=== PATIENT | female | born 1985 | race Caucasian/White ===

== ENCOUNTER 2022-02-20 13:20 | Outpatient (CLI) | payer BC, SELFPAY ==
[2022-02-20 23:24] LABS: Chlamydia DNA Amplified* NOT DETECTED (No Detected); GC DNA Amplified* NOT DETECTED (No Detected)
== END 2022-02-20 13:21 | disposition home or self-care (01) ==
PROVIDERS: PCP Physician Assistant Medical; Visit Provider Physician Assistant Medical
DX: Z00.00 Encounter for general adult medical examination without abnormal findings (principal); N94.10 Unspecified dyspareunia; K21.9 Gastro-esophageal reflux disease without esophagitis
CPT/HCPCS: 87491; 87591; 87624; 88175

== ENCOUNTER 2023-02-17 07:59 | Outpatient (CLI) | payer BC, SELFPAY | END 2023-02-17 08:00 | disposition home or self-care (01) | LOC: NFLDREF 02-19 12:58 | PROVIDERS: PCP Physician Assistant Medical; Referring Provider Physician Assistant Medical; Visit Provider Physician Assistant Medical | DX: Z00.00 Encounter for general adult medical examination without abnormal findings (principal); R74.8 Abnormal levels of other serum enzymes; Z13.6 Encounter for screening for cardiovascular disorders | CPT/HCPCS: 80053; 80061; 84443 ==

== ENCOUNTER 2023-03-19 13:07 | Outpatient (CLI) | payer BC, SELFPAY | END 2023-03-19 13:08 | disposition home or self-care (01) | PROVIDERS: PCP Physician Assistant Medical; Visit Provider Physician Assistant Medical | DX: Z01.818 Encounter for other preprocedural examination (principal); R74.8 Abnormal levels of other serum enzymes | CPT/HCPCS: 80076; 86703; 86803 ==

== ENCOUNTER 2023-03-28 09:23 | Day surgery (SDC) | payer BC, SELFPAY ==
[2023-03-28] VITALS (11 sets, daily range): BP systolic 100–121; BP diastolic 67–83; PULSE 66–93; RESP 12–20; TEMP 36.6–36.9; O2SAT 94–98; BMI 199.0
[2023-03-28] MEDS: SODIUM CHLORIDE 0.9 % (FLUSH) 10 ML SYRINGE IVF (09:45)
[2023-03-28] MEDS: LACTATED RINGERS 1000 ML 1,000 ML 100 ML IV (09:45)
[2023-03-28] MEDS: OXYMETAZOLINE (AFRIN) SOAK 1 EACH TOPICAL (10:00)
--- NOTE | 2023-03-28 10:58 | W.ANESCHARGE ---
Anesthesia Charges Start Date/Time Anesthesia Start Date: 03/28/23 Anesthesia Start Time: 10:52 Stop Date/Time Anesthesia Stop Date: 03/28/23 Anesthesia Stop Time: 11:24
[2023-03-28] MEDS: COCAINE HCL 4 % 4 ML SOLUTION NOSTRIL-B (11:05)
--- NOTE | 2023-03-28 11:06 | SUR.OPER ---
PATIENT QUESTIONS ANSWERED SATISFACTORILY PREOPERATIVELY. PATIENT BROUGHT TO OR #2 PER CART. Patient positioned supine on OR #2 bed. Perioperative team wrapped arms bilaterally at patient side with drawsheet. ? Final approval of positioning by surgeon.
[2023-03-28] MEDS: BUPIVACAINE 0.5%/EPINEPHRINE 0.9 MG (30.9 ML) INJECTION (11:07)
[2023-03-28] MEDS: AYR SALINE NASAL GEL 1 APPLIC NOSTRIL-B (11:08)
--- NOTE | 2023-03-28 11:22 | W.ANESCHARGE ---
Anesthesia Charges Start Date/Time Anesthesia Start Date: 03/28/23 Anesthesia Start Time: 10:52 Stop Date/Time Anesthesia Stop Date: 03/28/23 Anesthesia Stop Time: 11:24
[2023-03-28 11:45] LABS: Ur HCG Qualitative* Negative (Negative)
[2023-03-28] MEDS: ACETAMINOPHEN 325 MG TABLET PO (12:00)
[2023-03-28] MEDS: IBUPROFEN 200 MG TABLET PO (12:00)
--- NOTE | 2023-03-28 12:13 | P.ENTPROC_ITS ---
Procedure Note Date of procedure: 03/28/23 Procedure: Preoperative diagnosis nasal obstruction, inferior turbinate hypertrophy Postoperative diagnosis same Procedure submucous partial resection inferior turbinates bilateral Under general endotracheal anesthesia patient was prepped and draped in usual fashion nose injected and decongested. Stab incision was made the anterior of the right inferior turbinate a tunnel created with a [place] dissector. The vidhya bone was outfractured and a conservative anterior submucous resection performed. The Coblation Wand was used to cauterize intramurally along the inferior 10%. This was repeated on the left side in identical fashion. There was minimal bleeding. Com both placed in each nostril the end of the procedure. The patient opted was taken recovery in satisfactory condition blood loss less than 10 mL. Surgeon: Lokesh Arriaga MD
== END 2023-03-28 13:12 | disposition home or self-care (01) ==
LOC: OR 09:25
PROVIDERS: PCP Physician Assistant Medical; Visit Provider Otolaryngology
PROC: (CPT 30140; principal; 2023-03-28 10:45)
DX: J34.3 Hypertrophy of nasal turbinates (principal); J34.89 Other specified disorders of nose and nasal sinuses
CPT/HCPCS: 30140; 160; 81025; A9270; J0330; J1100; J1200; J2250; J2405; J2704; J3010; J7120

== ENCOUNTER 2023-05-26 12:50 | Outpatient (CLI) | payer BC, SELFPAY ==
--- NOTE | 2023-05-26 13:00 | CRLHL7_ITS ---
For Patients: As a result of the Century Cures Act, medical imaging exams and procedure reports are released immediately into your electronic medical record. You may view this report before your referring provider. If you have questions, please contact your health care provider. BILATERAL SCREENING MAMMOGRAM WITH COMPUTER-AIDED DETECTION AND TOMOSYNTHESIS TECHNIQUE: CC and MLO views were obtained. These mammographic images have been obtained using full-field digital technique. These mammographic images were interpreted with the benefit of computer-aided detection. Breast Tomosynthesis was used in this interpretation. COMPARISON FILM: Baseline, no priors available. FINDINGS: The breasts are heterogeneously dense, which may obscure small masses IMPRESSION: There is no radiographic evidence for malignancy. ASSESSMENT: BI-RADS Category 1: Negative RECOMMENDATION: Routine screening mammogram in 1 year. A lay language report of this examination will be provided to the patient. Michael Adrian M.D. Diagnostic Radiologist [email or web address] [place]/Dictated by: Michael Adrian MD @ 05/27/2023 9:01:00 AM (Electronically Signed)
== END 2023-05-26 12:51 | disposition home or self-care (01) ==
PROVIDERS: PCP Physician Assistant Medical; Visit Provider Physician Assistant Medical
DX: Z12.31 Encounter for screening mammogram for malignant neoplasm of breast (principal); R92.2 Inconclusive mammogram
CPT/HCPCS: 77063; 77067

== ENCOUNTER 2023-12-10 08:46 | Outpatient (CLI) | payer BC, SELFPAY ==
--- OUTSIDE RECORDS SUMMARY | 2023-12-10 08:51 | XMS_ITS | Referral Summary ---
Author Organization [place] Address [address] [place] [address] Care Team Providers Care Animal Husbandry Worker Name Role Phone Dexter Quinteros MD Primary Care Provider +1 [phone] Allergies No known active allergies Medications Medication Sig Dispensed Refills Start Date End Date Status Vit-Fe Sulfate-FA ( VITAMIN OR) Take 2 tablets by mouth daily Active oxyCODONE (ROXICODONE) 5 MG immediate release tabletIndications:Ce sarean delivery delivered Take 2 tablets (10 mg) by mouth every 3 hours as needed for moderate to severe pain 30 tablet 0 11/10/2013 Active ibuprofen (ADVIL,MOTRIN) 400-800 mg tabletIndications:Ce sarean delivery delivered Take 1-2 tablets (400-800 mg) by mouth every 6 hours as needed for other (cramping) 90 tablet 0 11/10/2013 Active senna-docusate (SENOKOT-S;PERICOLAC E) 8.6-50 MG per tabletIndications:Ce sarean delivery delivered Take 1-2 tablets by mouth 2 times daily 60 tablet 0 11/10/2013 Active Active Problems Problem Noted Date Diagnosed Date delivery delivered 11/08/2013 Social History Tobacco Use Types Packs/Day Years Used Date Smoking Tobacco: Every Day Cigarettes Smokeless Tobacco: Never Tobacco Cessation:Ready to Q uit: No Comments:not while Alcohol Use Standard Drinks/Week Comments Yes 0 (1 standard drink = 0.6 oz pur e alcohol) occas when not Adolescent Education Answer Date Record ed Getting School Help Needed Not on file 10/07 /2023 Sex and Gender Information Value Date Recorded Sex Assigned at Not on file Gender Identity Not on file Sexual Orientation Not on file Last Filed Vital Signs Vital Sign Reading Time Taken Comments Blood Pressure 105/73 02/01/2023 12:39 PM CDT Pulse 73 02/01/2023 12:44 PM CDT Temperature 37.3 ??C (99.1 ??F) 02/01/2023 9:52 AM CD T Respiratory Rate 16 02/01/2023 11:15 AM CDT Oxygen Saturation 99% 02/01/2023 12:44 PM CDT Inhaled Oxygen Concentration - - Weight 81 kg (178 lb 9.6 oz) 11/08/2013 7:00 AM CDT Height 157.5 cm (5' 2) 11/08/2013 7:00 AM CDT Body Mass Index 32.67 11/08/2013 7:00 AM CDT Plan of Treatment Not on file Procedures Procedure Name Priority Date/Time Associated Diagnosis Comments BASIC METABOLIC PANEL STAT 02/01/2023 9:58 AM CDT HIV 1 AND 2 ANTIBODY (QUEST) Routine 04/15/2013 from Last 3 Months or Most Recently Relevant to Health Maintenance Results * Basic metabolic panel (BMP) (02/01/2023 9:58 AM CDT) Sodium 138 136 - 145 mmol/L 02/01/2023 10:28 AM CDT LABORATORY Potassium 4.1 3.4 - 5.3 mmol/L 02/01/2023 10:28 AM CDT LABORATORY Chloride 103 98 - 107 mmol/L 02/01/2023 10:28 AM CDT LABORATORY Carbon Dioxide (CO2) 23 22 - 29 mmol/L 02/01/2023 10:28 AM CDT LABORATORY Anion Gap 12 7 - 15 mmol/L 02/01/2023 10:28 AM CDT [facility] LABORATORY Urea Nitrogen 17.6 6.0 - 20.0 mg/dL 02/01/2023 10:28 AM CDT LABORATORY Creatinine 0.74 0.51 - 0.95 mg/dL 02/01/2023 10:28 AM CDT LABORATORY Calcium 9.2 8.6 - 10.0 mg/dL 02/01/2023 10:28 AM CDT [facility] LAB[facility] Glucose 96 70 - 99 mg/dL 02/01/2023 10:28 AM CDT [facility] LAB[facility]ATORY GFR Estimate >90 >60 mL/min/1.7 3m2 02/01/2023 10:28 AM CDT [facility] LABORATORY Blood BLOOD SPECIMEN / Unknown Venipuncture / Unknown 02/01/2023 9:58 AM CDT 02/01/2023 10:08 AM CDT Diana Solitario PA-C LAB - BLOOD ORDERABL ES RH LABORATORY [facility] Acute Care Lab [address] [facility] Lab (1st floor, no room number) [place] [address], [facility] [phone] * HIV 1 and 2 Antibody (QUEST) (04/15/2013) HIV 1&2 Antibody non reactive Blood specimen (specimen) Patient Reported LAB - BLOOD ORDERABL ES from Last 3 Months or Most Recently Relevant to Health Maintenance Care Teams Animal Husbandry Worker Relationship Specialty Start Date End Date Dexter Quinteros MD [facility] [address] [place] [address] PCP - General Family Practice 07/13/11
--- OUTSIDE RECORDS SUMMARY | 2023-12-10 08:51 | XMS_ITS | Clinical Summary ---
Author Organization [employer] [facility] Address [place], [place] [address] Care Team Providers Care Civil Design Specialist Name Role Phone Jules Carranza MD Primary Care Provider +1 [phone] Allergies No known active allergies Medications Hospital, Clinic, or Other Facility Administered Medication Ordered Dose Route Frequency Start Date End Date Status medroxyPROGESTERone acetate (contraceptive) 150 mg injection (DEPO-PROVERA)Indicat ions:Menorrhagia with irregular cycle 150 mg IM Q 3 MONTHS (12 WEEKS) 11/10/2018 Active Immunizations Name Administration Dates Next Due MMR 03/12/1995 Tdap 07/21/2010,10/21/2008 Family History Medical History Relation Name Comments Lung cancer Father Hyperlipidemia Mother Hypertension Mother Bone cancer Paternal Grandfather Kidney cancer Paternal Grandmother No Known Problems Sister Relation Name Status Comments Father Mother Paternal Grandfather Paternal Grandmother Sister Social History Tobacco Use Types Packs/Day Years Used Date Smoking Tobacco: Every Day Cigarettes Smokeless Tobacco: Never Tobacco Cessation:Ready to Q uit: Yes; Counseling Given: Yes Comments:plans to quit in 2019 Alcohol Use Standard Drinks/Week Comments No 0 (1 standard drink = 0.6 oz pur e alcohol) Sex and Gender Information Value Date Recorded Sex Assigned at Not on file Gender Identity Not on file Sexual Orientation Not on file Obstetrics History Para Term AB IAB SAB Ectopic Multiple Livin g Live Births 1 1 1 1 Date Outcome GA Total Labor Labor/2nd/3rd Weight Sex Delivery Anes PTL Maddie A1 A5 Name Cl in 07/20 Term 39w 0d 2.79 kg (6 lb 2.4 oz) M Vag 9 9 FIEDL ER,BA BY BOY (CHRI JULIAN ) Delivery Location[facility] Comments:BLN: Brant Johnson eds: Zully (undoc'd) Last Filed Vital Signs Vital Sign Reading Time Taken Comments Blood Pressure 96/60 01/28/2019 1:04 PM CDT Pulse 76 11/10/2018 12:30 PM CDT Temperature 36.6 ??C (97.9 ??F) 11/04/2014 1:25 PM CD T Respiratory Rate 16 11/04/2014 1:25 PM CDT Oxygen Saturation 100% 11/04/2014 1:25 PM CDT Inhaled Oxygen Concentration - - Weight 65.8 kg (145 lb) 01/28/2019 1:04 PM CDT Height 162.6 cm (5' 4) 11/10/2018 12:30 PM CDT Body Mass Index 24.89 11/10/2018 12:30 PM CDT Plan of Treatment Health Maintenance Due Date Last Done Comments HIV for age 15-65 1998 Hepatitis C screening for age 18-79 2001 BMI (ht and wt on same day) for age 18+ 11/11/2019 11/10/2018, 03/26/2017 Depression screening for age 12+ 11/11/2019 11/10/2018, 11/10/2018, 03/26/2017 Tetanus booster 07/21/2020 07/21/2010, 10/21/2008 COVID-19 vaccine series (2022- season) 2023 Influenza for age 9-49 03/14/2024 Pap test for age 21-65 02/20/2025 , 02/20/2022, 06/02/2019, Additional history exists Tdap Completed 07/21/2010, 10/21/2008 Pneumococcal series for age 6-64 Aged Out No longer eligible based on patient's age to complete this topic Procedures Procedure Name Priority Date/Time Associated Diagnosis Comments HPV THIN PREP Routine 02/20/2022 1:30 PM CDT from Last 3 Months or Most Recently Relevant to Health Maintenance Results * HPV HIGH RISK (02/20/2022 1:30 PM CDT) TYPE 16 Negative Negative 02/26/2022 10:58 AM CDT [facility] TYPE 18 Negative Negative 02/26/2022 10:58 AM CDT [facility] LAB[facility] OTHER HIGH RISK TYPES Negative Negative 02/26/2022 10:58 AM CDT [facility] TRAL LABORATORY Other (Cervical/Vagina l) 02/20/2022 1:30 PM CDT 02/22/2022 10:29 AM CDT Narrative [facility] - 02/26/2022 10:58 AM CDT HPV types 16, 18, 31, 33, 35, 39, 45, 51, 52, 56, 58, 59, 66 and 68 DNA were undetectable or below the pre-set threshold. Methodology: Mohamud Latonia 4800 HPV Test Ayah Reyes PA-C MICROBIOLOGY [facility] LABORATORY [address] [place] [address], from Last 3 Months or Most Recently Relevant to Health Maintenance Advance Directives * Full Code (Latest Code Status on File) Date Activated Date Inactivated Comments 11/04/2014 8:19 AM 11/04/2014 3:32 PM * Full Code Date Activated Date Inactivated Comments 07/20/2010 7:40 PM 07/22/2010 3:49 PM * Full Code Date Activated Date Inactivated Comments 07/20/2010 5:08 AM 07/20/2010 7:40 PM Care Teams Civil Design Specialist Relationship Specialty Start Date End Date [place], [place] [address] [place] [address] PCP - General Family Practice 03/26/17
--- OUTSIDE RECORDS SUMMARY | 2023-12-10 08:51 | XMS_ITS | Clinical Summary ---
Author Organization [place] Address [address] [place] [address] Care Team Providers Care Mine Engineering Superintendent Name Role Phone Dexter Quinteros MD Primary Care Provider +1 [phone] Allergies No known active allergies Medications Medication [...] 11/08/2013 7:00 AM CDT Plan of Treatment Health Maintenance Due Date Last Done Comments ADVANCE CARE PLANNING 1983 ANNUAL REVIEW OF HM ORDERS 1983 MAMMO SCREENING 1983 YEARLY PREVENTIVE VISIT 1983 Pneumococcal Vaccine: Pediatrics (0 to 5 Years) and At-Risk Patients (6 to 64 Years) (1 of 2 - PCV) 1989 HEPATITIS C SCREENING 2001 HEPATITIS B IMMUNIZATION (1 of 3 - 19+ 3-dose series) 2002 DTAP/TDAP/TD IMMUNIZATION (3 - Td or Tdap) 07/21/2020 07/21/2010, 10/21/2008 LIPID 2023 COVID-19 Vaccine (1 - 2022-2 4 season) 2023 PHQ-2 (once per calendar year) 2023 INFLUENZA VACCINE (Season Ended) 2024 PAP 02/20/2025 02/20/2022, 02/20/2022 GLUCOSE 02/01/2026 02/01/2023, 07/13/2011, 11/14/2004 HIV SCREENING Completed 04/15/2013 HPV IMMUNIZATION Aged Out No longer e ligible based on patient's age to complete this topic IPV IMMUNIZATION Aged Out No longer e ligible based on patient's age to complete this topic MENINGITIS IMMUNIZATION Aged Out No l onger eligible based on patient's age to complete this topic RSV MONOCLONAL ANTIBODY Aged Out No l onger eligible based on patient's age to complete [...] - 15 mmol/L 02/01/2023 10:28 AM CDT LABORATORY Urea Nitrogen 17.6 6.0 - 20.0 mg/dL 02/01/2023 10:28 AM CDT LABORATORY Creatinine 0.74 0.51 - 0.95 mg/dL 02/01/2023 10:28 AM CDT LABORATORY Calcium 9.2 8.6 - 10.0 mg/dL 02/01/2023 10:28 AM CDT LABORATORY Glucose 96 70 - 99 mg/dL 02/01/2023 10:28 AM CDT LABORATORY GFR Estimate >90 >60 mL/min/1.7 3m2 02/01/2023 10:28 AM CDT LABORATORY Blood BLOOD SPECIMEN / Unknown Venipuncture / Unknown 02/01/2023 9:58 AM CDT 02/01/2023 10:08 AM CDT Diana Solitario PA-C LAB - BLOOD ORDERABL ES LABORATORY [facility] Acute Care Lab [address] [facility] Lab (1st floor, no room number) [place] [address], [facility] [phone] * HIV 1 and 2 Antibody (QUEST) (04/15/2013) HIV 1&2 Antibody non reactive Blood specimen (specimen) Patient Reported LAB - BLOOD ORDERABL ES from Last 3 Months or Most Recently Relevant to Health Maintenance Care Teams Mine Engineering Superintendent Relationship Specialty Start Date End Date Dexter Quinteros MD [facility] [address] [place] [address] PCP - General Family Practice 07/13/11
[2023-12-10 15:34] LABS: Chlamydia DNA Amplified* NOT DETECTED (No Detected); GC DNA Amplified* NOT DETECTED (No Detected)
== END 2023-12-10 08:47 | disposition home or self-care (01) ==
PROVIDERS: PCP Physician Assistant Medical; Visit Provider Physician Assistant Medical
DX: Z00.00 Encounter for general adult medical examination without abnormal findings (principal); R74.8 Abnormal levels of other serum enzymes; N92.6 Irregular menstruation, unspecified; Z11.3 Encounter for screening for infections with a predominantly sexual mode of transmission; Z11.59 Encounter for screening for other viral diseases; Z13.6 Encounter for screening for cardiovascular disorders; Z13.0 Encounter for screening for diseases of the blood and blood-forming organs and certain disorders involving the immune mechanism; Z13.1 Encounter for screening for diabetes mellitus
CPT/HCPCS: 80053; 80061; 86592; 86703; 86803; 87491; 87591

== ENCOUNTER 2024-01-06 13:43 | Outpatient (CLI) | payer BC, SELFPAY ==
--- OUTSIDE RECORDS SUMMARY | 2024-01-06 13:47 | XMS_ITS | Clinical Summary ---
Author Organization [facility] Address [address] [place] [address] Care Team Providers Care Four H Club Agent Name Role Phone Dexter Quinteros MD Primary Care Provider +1 -[phone] Allergies No known active allergies Medications Medication [...] PA-C LAB - BLOOD ORDERABL ES LABORATORY [facility] Acute Care Lab [address] [facility] Lab (1st floor, no room number) [place] [address], [facility] [phone] * HIV 1 and 2 Antibody (QUEST) (04/15/2013) HIV 1&2 Antibody non reactive Blood specimen (specimen) Patient Reported LAB - BLOOD ORDERABL ES from Last 3 Months or Most Recently Relevant to Health Maintenance Care Teams Four H Club Agent Relationship Specialty Start Date End Date Dexter Quinteros MD [facility] [address] [place] [address] PCP - General Family Practice 07/13/11
--- OUTSIDE RECORDS SUMMARY | 2024-01-06 13:48 | XMS_ITS | Referral Summary ---
Author Organization [facility] Address [address] [place] [address] Care Team Providers Care Courtroom Clerk Name Role Phone Dexter Quinteros MD Primary Care Provider +1 -[phone] Allergies No known active allergies Medications Medication [...] LAB - BLOOD ORDERABL ES RH LABORATORY [facility] Acute Care Lab [address] [facility] Lab (1st floor, no room number) [place] [address], [facility] [phone] * HIV 1 and 2 Antibody (QUEST) (04/15/2013) HIV 1&2 Antibody non reactive Blood specimen (specimen) Patient Reported LAB - BLOOD ORDERABL ES from Last 3 Months or Most Recently Relevant to Health Maintenance Care Teams Courtroom Clerk Relationship Specialty Start Date End Date Dexter Quinteros MD [facility] [address] [place] [address] PCP - General Family Practice 07/13/11
--- OUTSIDE RECORDS SUMMARY | 2024-01-06 13:48 | XMS_ITS | Clinical Summary ---
Author Organization [employer] [facility] Address [place], [place] [address] Care Team Providers Care Form Builder Name Role Phone Jules Carranza MD Primary Care Provider +1 -[phone] Allergies No known active allergies Medications Hospital, [...] Outcome GA Total Labor Labor/2nd/3rd Weight Sex Type Anes PTL Maddie A1 A5 Name Clin 1 Term 39w 0d 2.79 kg (6 lb 2.4 oz) M Vag 9 9 FIEDL ER,BA BY BOY (CHRI JULIAN ) Delivery Location:[facility] Comments:BLN: Brant Johnson eds: Zully (undoc'd) [...] 16 Negative Negative 02/26/2022 10:58 AM CDT [facility]AT[facility] TRAL LABORATORY TYPE 18 Negative Negative 02/26/2022 10:58 AM CDT [facility] TRAL LABORATORY OTHER HIGH RISK TYPES Negative Negative 02/26/2022 10:58 AM CDT [facility] TRAL LABORATORY Other (Cervical/Vagina l) 02/20/2022 1:30 PM CDT 02/22/2022 10:29 AM CDT Narrative [facility] - 02/26/2022 10:58 AM CDT HPV types 16, 18, 31, 33, 35, 39, 45, 51, 52, 56, 58, 59, 66 and 68 DNA were undetectable or below the pre-set threshold. Methodology: Mohamud Latonia 4800 HPV Test Ayah Reyes PA-C MICROBIOLOGY [facility] LABORATORY [address] [place] [address], from Last 3 Months or Most Recently Relevant to Health Maintenance Advance Directives * Full Code (Latest Code Status on File) Date Activated Date Inactivated Comments 11/04/2014 8:19 AM 11/04/2014 3:32 PM * Full Code Date Activated Date Inactivated Comments 07/20/2010 7:40 PM 07/22/2010 3:49 PM * Full Code Date Activated Date Inactivated Comments 07/20/2010 5:08 AM 07/20/2010 7:40 PM Care Teams Form Builder Relationship Specialty Start Date End Date [place], [place] [address] [place] [address] PCP - General Family Practice 03/26/17
--- NOTE | 2024-01-06 14:00 | CRLHL7_ITS ---
For Patients: As a result of the Century Cures Act, medical imaging exams and procedure reports are released immediately into your electronic medical record. You may view this report before your referring provider. If you have questions, please contact your health care provider. INDICATION: Irregular menses. TECHNIQUE: Transabdominal and transvaginal pelvic ultrasound. Grayscale and color Doppler images. FINDINGS: Uterus is anteverted and measures 7.1 x 5.5 x 2.8 cm. Endometrial stripe thickness is 5 mm. Uterus may have a septate configuration. There is a small amount of nonspecific fluid in the right uterine horn. Both ovaries appear normal and have normal color flow. Subtle corpus luteum in the right ovary. No adnexal mass or free fluid. IMPRESSION: Possible septate uterus. Dictated by Stevo Duke MD @ 01/07/2024 10:45:13 AM (Electronically Signed)
== END 2024-01-06 13:44 | disposition home or self-care (01) ==
LOC: US 13:44
PROVIDERS: PCP Physician Assistant Medical; Visit Provider Physician Assistant Medical
DX: N92.6 Irregular menstruation, unspecified (principal)
CPT/HCPCS: 76830; 76856

== ENCOUNTER 2024-06-03 06:01 | Day surgery (SDC) | payer BC, SELFPAY ==
--- OUTSIDE RECORDS SUMMARY | 2024-06-03 06:04 | XMS_ITS | Clinical Summary ---
Author Organization [place] Address [address] [place] [address] Care Team Providers Care Offset Second Press Operator Name Role Phone Dexter Quinteros MD Primary Care Provider +1 -[phone] Allergies No known active allergies Medications Vit-Fe Sulfate-FA ( VITAMIN OR) Take 2 tablets by mouth daily Active oxyCODONE (ROXICODONE) 5 MG immediate release tabletIndicatio ns: delivery delivered Take 2 tablets (10 mg) by mouth every 3 hours as needed for moderate to severe pain 30 tablet 0 11/10/2013 Active ibuprofen (ADVIL,MOTRIN) 400-800 mg tabletIndicatio ns: delivery delivered Take 1-2 tablets (400-800 mg) by mouth every 6 hours as needed for other (cramping) 90 tablet 0 11/10/2013 Active senna-docusate (SENOKOT-S;NELSON COLACE) 8.6-50 MG per tabletIndicatio ns: delivery delivered Take 1-2 tablets by mouth [...] Getting School Help Needed Not on file 04/19 Comments No Sex and Gender Information Value Date Recorded Sex Assigned at Not on file 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 Gender Identity Not on file Sexual Orientation Not on file Last Filed Vital Signs Vital Sign Reading Time Taken Comments Blood Pressure 105/73 02/01/2023 12:39 PM CDT Pulse 73 02/01/2023 12:44 PM CDT Temperature 37.3 C (99.1 F) 02/01/2023 9:52 AM CDT Respiratory Rate 16 02/01/2023 11:15 AM CDT [...] or Tdap) 07/21/2020 07/21/2010, 10/21/2008 LIPID 2023 PHQ-2 (once per calendar year) 2023 COVID-19 Vaccine (1 - 2023-2 5 season) 2024 INFLUENZA VACCINE (#1) 2024 PAP 02/20/2025 02/20/2022, 02/20/2022 GLUCOSE 02/01/2026 02/01/2023, 07/13/2011, 11/14/2004 RSV VACCINE (1 - 1-dose 75+ series) 2058 HIV SCREENING Completed 04/15/2013 HPV IMMUNIZATION Aged [...] 9:58 AM CDT 02/01/2023 10:08 AM CDT us Diana Solitario PA-C LAB - BLOOD ORDERABLES Final Re sult RH LABORATORY [facility] Acute Care Lab [address] Lab (1st floor, no room number) [place] [address], [facility] [phone] * HIV 1 and 2 Antibody (QUEST) (04/15/2013) HIV 1&2 Antibody non reactive Blood specimen (specimen) us Patient Reported LAB - BLOOD ORDERABLES Final Re sult from Last 3 Months or Most Recently Relevant to Health Maintenance Insurance [facility] Care Teams Offset Second Press Operator Relationship Specialty Start Date End Date Dexter Quinteros MD [facility] [address] [place] [address] PCP - General Family Practice 07/13/11
--- OUTSIDE RECORDS SUMMARY | 2024-06-03 06:04 | XMS_ITS | Clinical Summary ---
Author Organization [employer] [facility] Address [place], [place] [address] Care Team Providers Care Candy Rolling Machine Operator Name Role Phone Jules Carranza MD Primary Care Provider [phone] [phone] Allergies No known active allergies Medications Hospital, [...] ER,BA BY BOY (CHRI JULIAN ) Delivery Location[facility] Comments:BLN: Brant Johnson eds: Zully (undoc'd) Last Filed Vital Signs Vital Sign Reading Time Taken Comments Blood Pressure 96/60 01/28/2019 1:04 PM CDT Pulse 76 11/10/2018 12:30 PM CDT Temperature 36.6 C (97.9 F) 11/04/2014 1:25 PM CDT Respiratory Rate 16 11/04/2014 1:25 PM CDT [...] booster 07/21/2020 07/21/2010, 10/21/2008 COVID-19 vaccine series ( season) 2024 Influenza for age 9-49 03/14/2024 Pap test for age 21-65 02/20/2025 , 02/20/2022, 06/02/2019, Additional history exists Tdap Completed 07/21/2010, 10/21/2008 Pneumococcal series for age 6-64 Aged Out No longer eligible based on patient's age to complete this topic Procedures Procedure Name Priority Date/Time Associated Diagnosis Comments HPV HIGH RISK Routine 02/20/2022 1:30 PM CDT from Last 3 Months or Most Recently Relevant to Health Maintenance Results * HPV HIGH RISK (02/20/2022 1:30 PM CDT) TYPE 16 Negative Negative 02/26/2022 10:58 AM CDT [facility]AT[facility] TRAL LABORATORY TYPE 18 Negative Negative 02/26/2022 10:58 AM CDT [facility] TRA LABORATORY OTHER HIGH RISK TYPES Negative Negative 02/26/2022 10:58 AM CDT [facility] TRAL LABORATORY Other (Cervical/Vagina l) 02/20/2022 1:30 PM CDT 02/22/2022 10:29 AM CDT Narrative [facility] - 02/26/2022 10:58 AM CDT HPV types 16, 18, 31, 33, 35, 39, 45, 51, 52, 56, 58, 59, 66 and 68 DNA were undetectable or below the pre-set threshold. Methodology: Mohamud Latonia 4800 HPV Test Ayah Reyes PA-C MICROBIOLOGY [facility] LABORATORY [address] [place] [address], from Last 3 Months or Most Recently Relevant to Health Maintenance Advance Directives * Full Code (Latest Code Status on File) Date Activated Date Inactivated Comments 11/04/2014 8:19 AM 11/04/2014 3:32 PM * Full Code Date Activated Date Inactivated Comments 07/20/2010 7:40 PM 07/22/2010 3:49 PM * Full Code Date Activated Date Inactivated Comments 07/20/2010 5:08 AM 07/20/2010 7:40 PM Care Teams Candy Rolling Machine Operator Relationship Specialty [place] [address] [place] [address] PCP - General Family Practice 03/26/17
--- OUTSIDE RECORDS SUMMARY | 2024-06-03 06:04 | XMS_ITS | Referral Summary ---
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 Gender Identity Not on file Sexual Orientation [...] - 107 mmol/L 02/01/2023 10:28 AM CDT [facility] Carbon Dioxide (CO2) 23 22 - 29 mmol/L 02/01/2023 10:28 AM CDT [facility] Anion Gap 12 7 - 15 mmol/L 02/01/2023 10:28 AM CDT [facility] Urea Nitrogen 17.6 6.0 - 20.0 mg/dL 02/01/2023 10:28 AM CDT [facility] Creatinine 0.74 0.51 - 0.95 mg/dL [...] LAB - BLOOD ORDERABLES Final Re sult LABORATORY [facility] [address] [facility] (1st floor, no room number) [place] [address], [facility] [phone] * HIV 1 and 2 Antibody ([facility]) (04/15/2013) HIV 1&2 Antibody non reactive Blood specimen (specimen) us Patient Reported LAB - BLOOD ORDERABLES Final Re sult from Last 3 Months or Most Recently Relevant to Health Maintenance Insurance [facility] Care Teams Applications Sales Consultant Relationship Specialty Start Date End Date Dexter Quinteros MD [facility] [address] [place] [address] PCP - General Family Practice 07/13/11
[2024-06-03 06:17] VITALS: BMI 27.7
[2024-06-03 06:19] LABS: Ur HCG Qualitative* Negative (Negative)
[2024-06-03] MEDS: SODIUM CHLORIDE 0.9 % (FLUSH) 10 ML SYRINGE IVF (06:25)
[2024-06-03 06:31] VITALS: BP 112/76; PULSE 70; RESP 16; TEMP 36.9; O2SAT 96
[2024-06-03] MEDS: KETOROLAC 30 MG/ML inj IVP (07:33)
[2024-06-03] MEDS: CEFAZOLIN 2 GM INJ IVP (07:33)
[2024-06-03] MEDS: SILVER NITRATE APPLICATOR 1 EACH STICK..EA. TOPICAL (07:43)
[2024-06-03] MEDS: BUPIVACAINE 0.5% 30 ML INJECTION (07:43)
[2024-06-03 08:11] VITALS: BP 120/78; PULSE 87; RESP 20; TEMP 36.4; O2SAT 95
--- NOTE | 2024-06-03 08:11 | PM.PROC ---
Procedure Note Time Seen by Provider: 08:11 Date Seen: 06/03/24 Date of procedure: 06/03/24 Will [facility] bill your pro fee for this procedure?: Yes Procedure: Preoperative diagnosis: 39 yo with menorrhagia and septate uterus. Postoperative diagnosis: Same. Procedure: Hysteroscopy, dilation and curettage, hydrothermal endometrial ablation. Anesthesia: Mac and paracervical block. Surgeon: Gabi Kurtz Assist: None Estimated blood loss: 3 mL IV Fluid: 100 mL Specimen: Endometrial curettings, sent to path. Findings: On exam under anesthesia: The cervix and vagina appear normal. The uterus was mid position, approximately 8 week size, mobile and without masses or nodularity palpable. Adnexa were without mass or fullness palpable bilaterally. On hysteroscopy: Septate uterus, endometrium appeared normal. No other abnormalities noted. The uterus sounded to 10 cm. Procedure: Jessica was taken to the operating room where conscious sedation was found to be adequate. She was placed in a dorsal lithotomy position and an exam under anesthesia was performed with the findings stated above. She was then prepped and draped in a normal sterile manner. An a bivalve is sterile speculum was placed in the vaginal canal. A paracervical block was placed using 0.5% Marcaine: 10 mL were injected at the 4 and 8 o'clock positions on the cervix. A single-tooth tenaculum was placed on the anterior lip of the cervix. The cervix was then dilated to Hegar 6. Uterus sounded to 10 cm. The Truclear hysteroscope was advanced into the uterus. A diagnostic hysteroscopy performed with normal saline as the insufflation medium. Findings are stated above. The [employer]clear incisor was then advanced into the camera. And the curettage performed with this incisor. The curettage took approximately 30 seconds to sample the endometrium. The hysteroscope was removed. The cervix was then dilated to Hegar 7. The [facility] ablation camera was advanced into the uterus. The cavity check was completed and the ablation took place over 10 min. Patient received 30 mg of Toradol IV and 2 gm of Ancef prior to the procedure. The Allis clamp removed from the anterior lip of the cervix. Silver nitrate was used to obtain hemostasis The patient tolerated this procedure well. Sponge, lap and instrument counts were correct x2 at the end of the procedure and the patient was taken to the recovery area in stable condition.
[2024-06-03 08:15] VITALS: BP 109/76; PULSE 73; RESP 16; O2SAT 95
--- NOTE | 2024-06-03 08:22 | W.ANESCHARGE ---
Anesthesia Charges Start Date/Time Anesthesia Start Date: 06/03/24 Anesthesia Start Time: 07:13 Stop Date/Time Anesthesia Stop Date: 06/03/24 Anesthesia Stop Time: 08:12
--- NOTE | 2024-06-03 08:26 | W.ANESCHARGE ---
Anesthesia Charges Start Date/Time Anesthesia Start Date: 06/03/24 Anesthesia Start Time: 07:13 Stop Date/Time Anesthesia Stop Date: 06/03/24 Anesthesia Stop Time: 08:12
[2024-06-03 08:30] VITALS: BP 107/73; PULSE 76; RESP 16; O2SAT 95
[2024-06-03 08:45] VITALS: BP 113/78; PULSE 64; RESP 16; O2SAT 94
== END 2024-06-03 09:29 | disposition home or self-care (01) ==
LOC: OR 06:02
PROVIDERS: PCP Physician Assistant Medical; Visit Provider Obstetrics & Gynecology
PROC: 0UF98ZZ Fragmentation in Uterus, Via Natural or Artificial Opening Endoscopic (ICD-10-PCS; CPT 58563; principal; 2024-06-03 07:15)
DX: N92.0 Excessive and frequent menstruation with regular cycle (principal); Q51.28 Other and unspecified doubling of uterus
CPT/HCPCS: 58563; 00952; 81025; 88305; A9270; C1782; J0665; J0690; J1100; J1885; J2250; J2405; J2704; J3010; J3490

== ENCOUNTER 2024-06-24 08:55 | Outpatient (CLI) | payer BC, SELFPAY ==
--- NOTE | 2024-06-24 09:15 | CRLHL7_ITS ---
For Patients: As a result of the Century Cures Act, medical imaging exams and procedure reports are released immediately into your electronic medical record. You may view this report before your referring provider. If you have questions, please contact your health care provider. BILATERAL SCREENING MAMMOGRAM WITH COMPUTER-AIDED DETECTION AND TOMOSYNTHESIS TECHNIQUE: CC and MLO views were obtained. These mammographic images have been obtained using full-field digital technique. These mammographic images were interpreted with the benefit of computer-aided detection. Breast Tomosynthesis was used in this interpretation. COMPARISON FILM: 05/26/23. FINDINGS: The breasts are heterogeneously dense, which may obscure small masses. IMPRESSION: There is no radiographic evidence for malignancy. ASSESSMENT: BI-RADS Category 1: Negative RECOMMENDATION: Routine screening mammogram in 1 year. A lay language report of this examination will be provided to the patient. Michael Adrian M.D. Diagnostic Radiologist [email or web address] SP/Dictated by: Michael Adrian MD @ 06/24/2024 10:47:00 AM (Electronically Signed)
== END 2024-06-24 08:56 | disposition home or self-care (01) ==
LOC: MAMMO 08:56
PROVIDERS: PCP Physician Assistant Medical; Visit Provider Physician Assistant Medical
DX: Z12.31 Encounter for screening mammogram for malignant neoplasm of breast (principal); R92.333 Mammographic heterogeneous density, bilateral breasts
CPT/HCPCS: 77063; 77067

== ENCOUNTER 2024-12-13 08:53 | Outpatient (CLI) | payer BC, SELFPAY ==
[2024-12-13 18:43] LABS: Chlamydia DNA Amplified* NOT DETECTED (No Detected); GC DNA Amplified* NOT DETECTED (No Detected)
== END 2024-12-13 08:54 | disposition home or self-care (01) ==
PROVIDERS: PCP Physician Assistant Medical; Visit Provider Physician Assistant Medical
DX: Z00.00 Encounter for general adult medical examination without abnormal findings (principal); E66.811 Obesity, class 1; Z11.3 Encounter for screening for infections with a predominantly sexual mode of transmission; Z13.29 Encounter for screening for other suspected endocrine disorder
CPT/HCPCS: 80053; 80061; 84443; 87491; 87591

== ENCOUNTER 2025-07-04 07:58 | Outpatient (CLI) | payer BC, SELFPAY ==
--- NOTE | 2025-07-04 07:45 | CRLHL7_ITS ---
For Patients: As a result of the Century Cures Act, medical imaging exams and procedure reports are released immediately into your electronic medical record. You may view this report before your referring provider. If you have questions, please contact your health care provider. INDICATION: BILATERAL SCREENING MAMMOGRAM, ASYMPTOMATIC 40 Y/O FEMALE COMPARISON: 06/24/2024, 05/26/2023 TECHNIQUE: Digital mammogram in CC and MLO projections including computer-aided detection (CAD) and tomosynthesis. BREAST COMPOSITION: The breasts are heterogeneously dense, which may obscure small masses. FINDINGS: No suspicious findings. ASSESSMENT: BI-RADS 1 Negative RECOMMENDATION: Annual screening mammogram. A lay language report of this examination will be provided to the patient. Dictated by: Marry Ruiz MD @ 07/05/2025 10:00:55 (Electronically Signed)
== END 2025-07-04 07:59 | disposition home or self-care (01) ==
LOC: MAMMO 07:58
PROVIDERS: PCP Physician Assistant Medical; Visit Provider Physician Assistant Medical
DX: Z12.31 Encounter for screening mammogram for malignant neoplasm of breast (principal); R92.333 Mammographic heterogeneous density, bilateral breasts
CPT/HCPCS: 77063; 77067